=== PATIENT | male | born 1985 | race American Indian/Alaskan Native ===

== ENCOUNTER 2019-10-13 21:37 | Emergency (ER) | payer OTHER ==
[2019-10-14] MEDS ORDERED: IBUPROFEN 800 MG TAB PO ONE (00:05)
--- NOTE | 2019-10-14 00:42 | XRay Report ---
LUMBAR SPINE 3 VIEWS. INDICATION / CLINICAL INFORMATION: back pain COMPARISON: None available. FINDINGS: BONES / JOINT(S): No acute fracture or subluxation. No significant arthritis. SOFT TISSUES: No significant abnormality. ADDITIONAL FINDINGS: None. Signer Name: Gama Cota MD Signed: 10/14/2019 12:37 AM Workstation Name: [id number]
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
[2019-10-14 01:51] VITALS: BP 113/71
== END 2019-10-14 01:50 | disposition home or self-care (01) ==
LOC: ED 21:37
DX: M54.40 Lumbago with sciatica, unspecified side (principal); F17.200 Nicotine dependence, unspecified, uncomplicated; F12.10 Cannabis abuse, uncomplicated
CPT/HCPCS: 72100